=== PATIENT | female | born 1965 | race Caucasian/White ===

== ENCOUNTER 2019-11-11 21:51 | Inpatient (IN) | payer MEDICAID ==
[~2019-11-11] VITALS: Ht 172.7 cm; Wt 159.2 kg
[2019-11-11] MEDS: IV NORMAL SALINE 1,000ML 1,000 ML IV SCH (22:00)
--- NOTE | 2019-11-11 22:14 | PHYS DOC ---
Adult General Chief Complaint Chief Complaint: low BP HPI HPI 53-year-old female [facility] was originally called because the patient fell out of bed and could not get up. When EMS arrived they became some concern about the patient taking a bunch of extra medications. The patient denies this. They found her blood pressure to be low and her oxygen saturation room air to be in the low 80s. [facility] with a diverted her here. Patient admits to having COPD. She states that her Ativan was just recently changed over to Xanax. She takes today. She denies taking any extra medications today other than what she is prescribed. She is alert and able to answer all questions. EMS states that her oxygen saturation improved with nasal cannula. The patient has been feeling generally ill, but does not specifics. She denies vomiting or diarrhea until today. She has had diarrhea today. Review of Systems Review of Systems Constitutional: Denies fever or chills [] Eyes: Denies change in visual acuity, redness, or eye pain [] HENT: Denies nasal congestion or sore throat [] Respiratory: shortness of breath [] Cardiovascular: No additional information not addressed in HPI [] GI: Denies abdominal pain, nausea, vomiting, bloody stools or diarrhea [] : Denies dysuria or hematuria [] Musculoskeletal: Denies back pain or joint pain [] Integument: Denies rash or skin lesions [] Neurologic: Denies headache, focal weakness or sensory changes [] Endocrine: Denies polyuria or polydipsia [] All other systems were reviewed and found to be within normal limits, except as documented in this note. Current Medications Current Medications Current Medications Medications (Trade) Dose Ordered Sig/Sarahy Start Time Stop Time Status Last Admin Dose Admin Albuterol/ Ipratropium (Duoneb) 3 ml 1X ONCE 11/11/19 22:00 11/11/19 22:01 UNV Sodium Chloride 1,000 ml @ 1,000 mls/hr 1X ONCE 11/11/19 22:00 11/11/19 22:59 UNV Physical Exam Physical Exam Constitutional: Well developed, morbidly obese, well nourished, no acute di stress, feces on her body[] HENT: Normocephalic, atraumatic, bilateral external ears normal, oropharynx and lips very dry, no oral exudates, nose normal. [] Eyes: PERRLA, EOMI, conjunctiva normal, no discharge. [] Neck: Normal range of motion, no tenderness, supple, no stridor. [] Cardiovascular: Heart rate regular rhythm, no murmur [] Lungs & Thorax: Bilateral breath sounds reveal diminished[] Abdomen: Bowel sounds normal, soft, no tenderness, no masses, no pulsatile masses. [] Skin: Warm, dry, no erythema, no rash. [] Back: No tenderness, no CVA tenderness. [] Extremities: No tenderness, no cyanosis, no clubbing, ROM intact, no edema. [] Neurologic: Alert and oriented X 3, normal motor function, normal sensory function, no focal deficits noted. [] Psychologic: Affect normal, judgement normal, mood normal. [] EKG EKG Sinus rhythm, rate 76, normal axis, no ST elevations or depressions[] Radiology/Procedures Radiology/Procedures [] Impressions: EXAM: CHEST ONE VIEW. HISTORY: Shortness of breath. COMPARISON: None. FINDINGS: A frontal view of the chest is obtained. The left hilum is prominent with left perihilar opacities. There is no pneumothorax or pleural effusion. The heart is at least mildly enlarged. IMPRESSION: 1. Prominent left hilum. Correlation with older studies is recommended to assess chronicity, versus follow-up to resolution. 2. Left perihilar opacities suggests atypical pneumonia. 3. Mild cardiomegaly. Electronically signed by: Deann Sheriff MD (11/12/2019 12:43 AM) [id number] DICTATED AND SIGNED BY: ADDY SHERIFF MD DATE: 11/12/19 0043 CC: LULA ALVAREZ DO; BOSTON NELSON MD ~ Course & Med Decision Making Course & Med Decision Making Pertinent Labs and Imaging studies reviewed. (See chart for details) Patient's labs are unremarkable except for an elevated BUN and creatinine. These appear consistent with her clinical presentation of being very dehydrated. I ordered 2 L of normal saline for the patient. On arrival her blood pressure is low. Her blood pressure continues to be low. Her systolic is in the mid 80s. We have tried different size cuffs and locations with similar results. Her heart rate is only in the mid 70s. The patient is not on a beta carter. Her O2 is 95% on 2 L. The patient continues to be able to answer questions without difficulty. She does not appear clinically stressed. Patient's blood pressure began to improve after the second liter of fluids. She's had very little urine output despite Davis catheter. I believe she is profoundly dehydrated. I have ordered a third liter of normal saline. I will also give the patient 125 of Solu-Medrol for her hypoxia though I don't have clear signs of wheezing to suggest COPD exacerbation. I still suspect this could be the case. I we'll admit the patient for hypoxia and hypotension. I spoke with the hospitalist, Dr. Cortez and he has accepted her for admission. Admission the radiologist over read suggests left-sided pneumonia. I have ordered levofloxacin and azithromycin due to the patient's penicillin allergy. She does meet sepsis criteria. Sepsis assessments abdomen and this note. The patient has been given more than 30 mL/kg body weight fluids, blood cultures were drawn, lactic acid was normal at 1.5. After has improved after 3 L. She is still hypoxic, but stable and conversing easily. She is feeling much better. 70 minutes of critical care time was spent on this patient exclusive of billable procedures. [] Dragon Disclaimer Dragon Disclaimer This electronic medical record was generated, in whole or in part, using a voice recognition dictation system. Departure Departure: Impression: Primary Impression: Dehydration Additional Impressions: Hypotension Hypoxia Disposition: ADMITTED INPATIENT Admitting Physician: Evan Cortez Condition: GUARDED Sepsis Assessment: Date and Time of Assessment Date: Nov 11, 2019 Time: 23:00 Vital Signs Vital Signs Vital Signs Date Time Temp Pulse Resp B/P (MAP) Pulse Ox O2 Delivery O2 Flow Rate FiO2 11/11/19 23:59 77 18 90/35 (53) 95 Nasal Cannula 2.0 11/11/19 21:51 97.7 Respirations Respiratory Effort: Normal Respiratory Pattern: Normal Cardiovascular Pulse Rhythm: Regular HEART: Nml rate, reg. rhythm Lung Sounds Breath Sounds: Diminished Capillary Refill Capillary Refill: Rt Hand > 3 seconds Peripheral Pulse Pulse Location: Monitor Pulse Strength: Weak (1+) Pulse Assessment Method: Monitor Integumentary Skin: Warm Skin Moisture: Dry Skin Turgor: Normal Skin Color: dry Fingernail Color: WNL Sepsis Assessment: Date and Time of Assessment Date: Nov 12, 2019 Time: 01:19 Vital Signs Vital Signs Vital Signs Date Time Temp Pulse Resp B/P (MAP) Pulse Ox O2 Delivery O2 Flow Rate FiO2 11/11/19 23:59 77 18 90/35 (53) 95 Nasal Cannula 2.0 11/11/19 21:51 97.7 Respirations Respiratory Effort: Normal Respiratory Pattern: Normal Cardiovascular Pulse Rhythm: Regular HEART: Nml rate, reg. rhythm Lung Sounds Breath Sounds: Diminished Capillary Refill Capillary Refill: Rt Hand < 3 seconds Peripheral Pulse Pulse Location: Monitor Pulse Strength: Normal (2+) Pulse Assessment Method: Monitor Integumentary Skin: Warm Skin Moisture: Dry Skin Turgor: Normal Skin Color: warm Fingernail Color: WNL Problem Qualifiers Additional Impressions: Hypotension Hypotension type: hypotension due to hypovolemia Qualified Codes: I95.89 - Other hypotension; E86.1 - Hypovolemia LULA ALVAREZ DO Nov 11, 2019 22:14
[2019-11-11] MEDS ORDERED: IPRATRPIUM/ALBUTEROL 0.5/2.5MG 3 ML NEBU. NEB ONE (22:15)
[2019-11-11] MEDS ORDERED: IV NORMAL SALINE 1,000ML 1,000 ML IV ONE (22:15)
[2019-11-11 22:27] LABS: BASO % 0 % (0-3); EOS % 0 % (0-3); HEMATOCRIT 41.5 % (36.0-47.0); LYMPH # 1.3 x10^3/uL (1.0-4.8); LYMPH % 13 % (24-48); MEAN CORPUSCULAR HEMOGLOBIN 27 pg (25-35); MEAN CORPUSCULAR HGB CONC 31 g/dL (31-37); MEAN CORPUSCULAR VOLUME 84 fL (79-100); MONO # 0.8 x10^3/uL (0.0-1.1); MONO % 8 % (0-9); NEUT # 7.6 x10^3uL (1.8-7.7); NEUT % 78 % (31-73); PLATELET COUNT 282 x10^3/uL (140-400); RED BLOOD COUNT 4.92 x10^6/uL (3.50-5.40); RED CELL DISTRIBUTION WIDTH 16.5 % (11.5-14.5); WHITE BLOOD COUNT 9.8 x10^3/uL (4.0-11.0)
[2019-11-11 22:32] LABS: CALCIUM 9.4 mg/dL (8.5-10.1); CREATININE 2.5 mg/dL (0.6-1.0); POTASSIUM 3.4 mmol/L (3.5-5.1)
[2019-11-11 22:38] LABS: ALBUMIN 3.4 g/dL (3.4-5.0); ALBUMIN/GLOBULIN RATIO 0.9 (1.0-1.7); TOTAL BILIRUBIN 0.3 mg/dL (0.2-1.0); TOTAL PROTEIN 7.1 g/dL (6.4-8.2)
[2019-11-11 22:51] LABS: ACETAMIN < 2 mcg/mL (10-30); SALIC 3.7 mg/dL (2.8-20.0)
[2019-11-11 22:52] LABS: ETHANOL < 10 mg/dL (0-10)
[2019-11-11 23:44] LABS: BILIRUBIN,URINE NEG (NEG); CLARITY,URINE HAZY; COLOR,URINE YELLOW; GLUCOSE,URINE NEG (NEG); NITRITE,URINE NEG (NEG); RBC,URINE OCC /HPF (0-2); UROBILINOGEN,URINE 0.2 mg/dL (0.2 mg/dL)
[2019-11-11 23:45] LABS: BACTERIA,URINE MANY /HPF (0-FEW); SQUAMOUS EPITHELIAL CELL,UR MOD /LPF
[2019-11-11 23:55] LABS: BARBITURATES NEG (NEG); BENZODIAZEPINES POS (NEG); CANNABINOIDS NEG (NEG); COCAINE NEG (NEG); METHADONE NEG (NEG); OPIATES NEG (NEG); PHENCYCLIDINE NEG (NEG)
[2019-11-11 23:56] LABS: AMPHETAMINE/METHAMPHETAMINE NEG (NEG)
[2019-11-12] VITALS (15 sets, daily range): BP systolic 101–155; BP diastolic 37–119
[2019-11-12] MEDS ORDERED: IV NORMAL SALINE 1,000ML 1,000 ML IV ONE
[2019-11-12] MEDS ORDERED: ONDANSETRON PF 4 MG/2 ML VIAL. IV PRN (00:30)
[2019-11-12] MEDS ORDERED: methylPREDNISolone SOD SUCC PF 125 MG/2 ML VIAL. IV ONE (00:30)
--- NOTE | 2019-11-12 00:46 | EKG ---
[address] [address] Test Date: 2019-11-11 Test Time: 22:32:40 Pat Name: BUTCH MARIE Department: Room: Gender: F Reordering Clerk: : [id number] Requested By: LULA ALVAREZ Order Number: [id number] Reading MD: Measurements Intervals [place] Rate: 76 P: 56 TN: 168 QRS: 45 QRSD: 94 T: 56 QT: 444 QTc: 499 Interpretive Statements SINUS RHYTHM ATRIAL PREMATURE COMPLEX(ES) QRS(T) CONTOUR ABNORMALITY CONSIDER ANTEROLATERAL MYOCARDIAL DAMAGE PROLONGED QT POSSIBLY ABNORMAL ECG RI6.01 No previous ECG available for comparison
--- NOTE | 2019-11-12 00:46 | RAD ---
EXAM: CHEST ONE VIEW. HISTORY: Shortness of breath. COMPARISON: None. FINDINGS: A frontal view of the chest is obtained. The left hilum is prominent with left perihilar opacities. There is no pneumothorax or pleural effusion. The heart is at least mildly enlarged. IMPRESSION: 1. Prominent left hilum. Correlation with older studies is recommended to assess chronicity, versus follow-up to resolution. 2. Left perihilar opacities suggests atypical pneumonia. 3. Mild cardiomegaly. Electronically signed by: Deann Sheriff MD (11/12/2019 12:43 AM) [id number]
[2019-11-12] MEDS ORDERED: AZITHROMYCIN 500 MG in IV NORMAL SALINE 250ML 250 ML IV ONE (01:45)
[2019-11-12] MEDS ORDERED: IV NORMAL SALINE 250ML 250 ML ONE (01:49)
[2019-11-12] MEDS ORDERED: AZITHROMYCIN 500 MG VIAL. IV ONE (01:49)
[2019-11-12] MEDS ORDERED: QUET400T7 PO (03:20)
[2019-11-12] MEDS ORDERED: TRAZ300T2 PO (03:21)
[2019-11-12] MEDS ORDERED: ALPR1TAB2 PO (03:21)
[2019-11-12] MEDS ORDERED: TEMA30CA6 PO (03:21)
[2019-11-12] MEDS: IV NORMAL SALINE 1,000ML 1,000 ML IV SCH ×3 (03:33→21:03)
[2019-11-12] MEDS ORDERED: FURO-68 PO (06:07)
[2019-11-12] MEDS ORDERED: LISI1TAB19 PO (06:07)
[2019-11-12] MEDS ORDERED: POTA20TA4 PO (06:07)
[2019-11-12 08:32] LABS: ALBUMIN 3.1 g/dL (3.4-5.0); ALBUMIN/GLOBULIN RATIO 0.9 (1.0-1.7); CALCIUM 8.4 mg/dL (8.5-10.1); GFR 25.9; POTASSIUM 3.7 mmol/L (3.5-5.1); TOTAL BILIRUBIN 0.1 mg/dL (0.2-1.0); TOTAL PROTEIN 6.4 g/dL (6.4-8.2)
[2019-11-12] MEDS ORDERED: FLUO20CA20 PO (13:02)
[2019-11-12 14:59] LABS: BASO % 0 % (0-3); EOS % 0 % (0-3); HEMATOCRIT 41.5 % (36.0-47.0); HEMOGLOBIN 13.1 g/dL (12.0-15.5); LYMPH # 0.6 x10^3/uL (1.0-4.8); LYMPH % 7 % (24-48); MEAN CORPUSCULAR HEMOGLOBIN 27 pg (25-35); MEAN CORPUSCULAR HGB CONC 32 g/dL (31-37); MEAN CORPUSCULAR VOLUME 84 fL (79-100); MONO # 0.2 x10^3/uL (0.0-1.1); MONO % 3 % (0-9); NEUT # 7.9 x10^3uL (1.8-7.7); NEUT % 90 % (31-73); PLATELET COUNT 271 x10^3/uL (140-400); RED BLOOD COUNT 4.96 x10^6/uL (3.50-5.40); RED CELL DISTRIBUTION WIDTH 16.2 % (11.5-14.5); WHITE BLOOD COUNT 8.8 x10^3/uL (4.0-11.0)
--- NOTE | 2019-11-12 16:43 | HP ---
ADMIT DATE: 11/11/2019 HISTORY OF PRESENT ILLNESS: The patient is a 53-year-old female patient, who came as a diversion from the [place]. The EMS was originally called because the patient fell out of bed and could not get up. The EMS arrived, they became concerned about the patient taking a bunch of extra medication. The patient denies that they found her blood pressure to be low and her oxygen saturation on room air was only 80%. They attempted to take her to the [place]; however, she was diverted to [facility] Emergency Room. She apparently admits that she has COPD. She stated that her Ativan was just recently changed to Xanax. She took it on the admission day. She denies taking any extra medication other than what is prescribed. She was alert and able to answer all questions. The EMS states that her oxygen saturation improved with nasal cannula. The patient has been feeling generally ill, but is not specific. She denies any vomiting or diarrhea. She was evaluated in the Emergency Room and apparently was found to be hypotensive. In fact, her blood pressure on arrival was only 43/25. She was extremely hypoxic with oxygen saturation on 85-86% on room air. She was given about 3 liters of fluid, given Solu-Medrol and started on IV antibiotic, was admitted to ICU for further evaluation and treatment. PAST MEDICAL HISTORY: According to her is significant for hypertension, hyperlipidemia and coronary artery disease. She also has traumatic brain injury and posttraumatic stress disorder as well as seizure disorder and she stated that she was told she has myocardial infarction, has had cardiac catheterization in [facility]. PAST SURGICAL HISTORY: Significant for left wrist surgery, right knee and right ankle surgery. She also has total abdominal hysterectomy. ALLERGIES: SHE IS ALLERGIC TO PENICILLIN AND CEPHALEXIN. FAMILY HISTORY: Noncontributory. SOCIAL HISTORY: She apparently was recently. She apparently was to for the last 10 years, was living in [facility]. She used to smoke before. She was apparently only about a week ago. Does not drink alcohol or use recreational drugs, although apparently in history she was using drugs before. MEDICATIONS: She is currently on following medications: She is on lisinopril/hydrochlorothiazide 20/12.5 mg once a day, fluoxetine 20 mg once a day, trazodone 300 mg at bedtime, quetiapine fumarate 800 mg at bedtime, alprazolam for Xanax 1 mg 3 times a day, temazepam 30 mg at bedtime, potassium chloride 20 mEq daily, furosemide 40 mg once a day. PHYSICAL EXAMINATION: GENERAL: On arrival to the Emergency Room, according to the ER physician, the patient was alert, oriented with normal motor and sensory function. There was no pallor, jaundice, cyanosis or thyromegaly. No jugular venous distention. No limb edema. VITAL SIGNS: Her heart rate was 73, blood pressure was 143/25, temperature 97.7, respiratory rate was 18 and oxygen saturation was 86% on room air. HEAD, EYES, EARS, NOSE AND THROAT: Showed normocephalic, atraumatic. NECK: Supple. CARDIAC: Normal first and second heart sounds. No gallop, rub or murmur. CHEST: Clear to auscultation. No crepitation or rhonchi. ABDOMEN: Distended, soft, nontender. NEUROLOGIC: She was apparently awake, alert, responding appropriately. All her cranial nerves are intact. EXTREMITIES: She moves extremities without difficulty. LABORATORY DATA: While in the Emergency Room, she has had lab work done showed a white cell count 9800, hemoglobin 13, hematocrit 42, MCV 84 and platelet count 282,000 with normal manual differential. Her chemistry showed a serum sodium 139, potassium 3.4, chloride 100, bicarbonate 26, anion gap of 13, BUN 34, creatinine 2.5, estimated GFR was 20 mL per minute, her glucose 152, calcium was 9.4, lactic acid was 1.5. Her total bilirubin, AST, ALT, alkaline phosphatase were normal. Total protein 7.1, albumin was 3.4. Her urinalysis showed the urine was yellow, hazy with a pH of 6, specific gravity 1.015. The urine was negative for protein, glucose, ketones, blood, nitrite and there was trace of leukocyte esterase, occasional rbc's, 5-10 wbc's, and many bacteria. Her toxic screen was positive for benzodiazepine, negative for opiates, methadone, barbiturate, phencyclidine, amphetamine, methamphetamine, cocaine, cannabinoids and alcohol. She apparently had x-ray of the chest, which showed that the left hilum is prominent with left perihilar opacities. There is no pneumothorax, pleural effusion. Heart is at least mildly enlarged with the impression is that the patient has prominent left hilum, left perihilar opacity suggesting atypical pneumonia with mild cardiomegaly. She has received about 3 liters of fluid, was also given a dose of methylprednisolone, Zithromax and levofloxacin and was admitted to the ICU for further evaluation and treatment. LYNETTE BEARD MD DR: LILIANE/tristan JOB#: [id number] / [id number]
[2019-11-12] MEDS ORDERED: traZODone 100 MG TABLET. PO SCH (21:00)
[2019-11-12] MEDS ORDERED: TRAZODONE HCL 300 MG PO SCH (21:00)
[2019-11-12] MEDS ORDERED: QUETIAPINE FUMARATE 800 MG PO SCH (21:00)
--- NOTE | 2019-11-12 23:39 | PN ---
DATE: 11/12/2019 SUBJECTIVE: The patient is sitting, slightly propped up in bed, in no apparent distress. She is awake, alert. Denied any complaint. Her blood pressure has normalized. When I examined her this afternoon, she looked well and was clearly in no apparent respiratory distress. No pallor, jaundice, cyanosis or thyromegaly. No jugular venous distention. No lower limb edema. OBJECTIVE: VITAL SIGNS: Her heart rate was 91, blood pressure was 133/73, temperature was 98.1. Her respiratory rate was 17 and oxygen saturation was 94% on room air. HEAD, EYES, EARS, NOSE AND THROAT: Showed normocephalic, atraumatic. NECK: Supple. HEART: Showed normal first and second heart sounds. No gallop or murmur. CHEST: Clear to auscultation. No crepitation or rhonchi. ABDOMEN: Distended, soft, nontender. NEUROLOGIC: She was definitely more awake, alert, responding appropriately. All cranial nerves intact. She moves extremities without difficulty. She apparently ambulates without assistance or assistive devices. Her intake over the last 24 hours was 4150, output was 675. LABORATORY DATA: This afternoon showed white cell count of 8800, hemoglobin 13, hematocrit 41, MCV 84 and platelet count 271,000. Her serum sodium was 139, potassium 3.7, chloride 103, bicarbonate 24, anion gap of 12, BUN 34, creatinine 2, estimated GFR was 25 mL per minute. Her glucose was 146, calcium was 8.4. Total bilirubin, AST, ALT, alkaline phosphatase were normal. She had 2 sets of cardiac enzymes that ruled out myocardial infarction. Her total protein was 6.4, albumin 3.1. ASSESSMENT: In summary, this is a 53-year-old female patient who was admitted with altered mental status, likely due to multiple sedatives with psychotropic medication. She was extremely dehydrated, hypotensive, hypoxic. She has probably acute renal failure. Her creatinine was 2.5. Also, has hypokalemia. She is now maintaining her oxygen saturation at 94% on room air. Her creatinine has improved from 2.5 to 2 mg/dL. Potassium has improved to 3.7. PLAN: My plan is to discontinue her lisinopril/hydrochlorothiazide, hold her hypnotics including the Xanax and temazepam as well as furosemide and potassium. I will continue the IV fluid, repeat her labs tomorrow. She had received 750 mg of Levaquin yesterday; that should be enough for 48 hours. If her lab works are improved tomorrow, she can be discharged to continue with oral antibiotic. LYNETTE BEARD MD DR: LILIANE/tristan JOB#: [id number] / [id number]
[2019-11-13 01:11] VITALS: BP 102/57
[2019-11-13 03:52] VITALS: BP 108/58
[2019-11-13 06:06] VITALS: BP 131/71
[2019-11-13] MEDS: IV NORMAL SALINE 1,000ML 1,000 ML IV SCH (06:30)
[2019-11-13 06:37] LABS: CALCIUM 8.7 mg/dL (8.5-10.1); CREATININE 1.5 mg/dL (0.6-1.0); GFR 36.1; POTASSIUM 4.2 mmol/L (3.5-5.1)
[2019-11-13 07:51] LABS: BASO % 0 % (0-3); EOS % 0 % (0-3); HEMATOCRIT 39.4 % (36.0-47.0); HEMOGLOBIN 12.3 g/dL (12.0-15.5); LYMPH # 2.3 x10^3/uL (1.0-4.8); LYMPH % 27 % (24-48); MEAN CORPUSCULAR HEMOGLOBIN 26 pg (25-35); MEAN CORPUSCULAR HGB CONC 31 g/dL (31-37); MEAN CORPUSCULAR VOLUME 84 fL (79-100); MONO # 0.7 x10^3/uL (0.0-1.1); MONO % 8 % (0-9); NEUT # 5.3 x10^3uL (1.8-7.7); NEUT % 64 % (31-73); PLATELET COUNT 247 x10^3/uL (140-400); RED BLOOD COUNT 4.68 x10^6/uL (3.50-5.40); RED CELL DISTRIBUTION WIDTH 16.8 % (11.5-14.5); WHITE BLOOD COUNT 8.4 x10^3/uL (4.0-11.0)
[2019-11-13 08:00] VITALS: BP 90/55
[2019-11-13 08:33] LABS: DIRECT BILIRUBIN 0.1 mg/dL (0.0-0.2); TOTAL BILIRUBIN 0.1 mg/dL (0.2-1.0); TOTAL PROTEIN 6.4 g/dL (6.4-8.2)
[2019-11-13] MEDS ORDERED: FLUoxetine HCL 20 MG CAPSULE PO SCH (09:00)
[2019-11-13 09:27] LABS: % ATYL 5 % (0-0); % EOS 1 % (0-5); % LYMPHS 25 % (24-48); % MONOS 9 % (0-10); % SEGS 60 % (35-66)
[2019-11-13 09:30] LABS: PLT ESTIMATE ADEQUATE (ADEQUATE)
[2019-11-13 12:00] VITALS: BP 112/66
[2019-11-13] MEDS ORDERED: LEVO500T59 PO (16:23)
[2019-11-13 16:39] VITALS: BP 110/73
--- NOTE | 2019-11-13 18:36 | DS ---
DATE OF DISCHARGE: HOSPITAL COURSE: The patient is a 53-year-old female patient who was originally admitted to the Emergency Room with altered mental status, likely due to multiple sedatives and psychotropic medication. She was also found to be extremely dehydrated, hypotensive, hypoxic and was also diagnosed with acute kidney injury. She was treated aggressively with IV fluid and her chest x-ray showed that the patient has left perihilar opacity suggesting atypical pneumonia. She was started on IV Levaquin. She did actually very well. She is now awake, alert, responding appropriately. All her vital signs are stable. PHYSICAL EXAMINATION: GENERAL: When I saw her this afternoon, she looked well and was clearly in no apparent respiratory distress. No pallor, jaundice, cyanosis or thyromegaly. No jugular venous distention. No lower limb edema. VITAL SIGNS: Her heart rate was 76, blood pressure was 90/55, temperature 97.8, respiratory rate was 14 and oxygen saturation was 98%. Physical exam otherwise stable. Her intake over the last 24 hours was 4450, output was 675. LABORATORY DATA: Her lab work this morning showed a white cell count of 8400, hemoglobin 12, hematocrit 39, MCV 84 and platelet count of 247,000. Her chemistry showed a serum sodium 138, potassium 4.2, chloride 103, bicarbonate 25, anion gap of 10, BUN 29, creatinine 1.5, estimated GFR was 36 mL per minute. Her glucose 105, calcium was 8.7. Total bilirubin, AST, ALT, alkaline phosphatase were normal. Total protein was 6.4, albumin 3. DISCHARGE MEDICATIONS: She was discharged home to continue on Levaquin 500 mg once a day for 7 more days, alprazolam for Xanax 1 mg 3 times a day, fluoxetine 20 mg once a day, furosemide 40 mg once a day, lisinopril/hydrochlorothiazide 1 tablet daily. She is on potassium chloride 20 mEq once a day, quetiapine fumarate for Seroquel 800 mg at bedtime, temazepam 30 mg at bedtime and trazodone 300 mg at bedtime. FINAL DISCHARGE DIAGNOSES: 1. Altered mental status, likely due to multiple sedatives and psychotropic medication. 2. Acute kidney injury, resolved. Her creatinine is down from 2.5 to 1.5. 3. Hypokalemia, resolved. 4. Community-acquired pneumonia for which she is on Levaquin. 5. Acute hypoxic respiratory failure, resolved. She is now 94% on room air. LYNETTE BEARD MD DR: LILIANE/tristan JOB#: [id number] / [id number]
== END 2019-11-13 18:15 | disposition home or self-care (01) | DRG 91 ==
LOC: ER 21:51 → ICU 23:30
PROVIDERS: ADMIT Internal Medicine; ATTEND Internal Medicine
DX: G92 Toxic encephalopathy (principal); J18.9 Pneumonia, unspecified organism; J96.01 Acute respiratory failure with hypoxia; J44.0 Chronic obstructive pulmonary disease with (acute) lower respiratory infection; N17.9 Acute kidney failure, unspecified; E86.0 Dehydration; I95.9 Hypotension, unspecified; T42.75XA Adverse effect of unspecified antiepileptic and sedative-hypnotic drugs, initial encounter; T43.95XA Adverse effect of unspecified psychotropic drug, initial encounter; I10 Essential (primary) hypertension; I25.10 Atherosclerotic heart disease of native coronary artery without angina pectoris; F43.10 Post-traumatic stress disorder, unspecified; G40.909 Epilepsy, unspecified, not intractable, without status epilepticus; E87.6 Hypokalemia; E78.5 Hyperlipidemia, unspecified; I25.2 Old myocardial infarction; Z88.0 Allergy status to penicillin; Z90.710 Acquired absence of both cervix and uterus; Z87.891 Personal history of nicotine dependence; Y92.89 Other specified places as the place of occurrence of the external cause
CPT/HCPCS: 36415; 51702; 71045; 80048; 80053; 80076; 80307; 80329; 81001; 83605; 84484; 85007; 85025; 87040; 87086; 93005; 94640; 96361; 96365; 96368; 96375; G0480; J0456; J1956; J2930; J7050; J7620; 82003; 99291-25; J7030